=== PATIENT | male | born 1995 | race Caucasian/White ===

== ENCOUNTER 2021-11-12 19:02 | Emergency (ER) | payer OTHER ==
[~2021-11-12] VITALS: Wt 108.9 kg
[~2021-11-12 19:02] MED LIST: ACULAR 3ML 3 ML5 ML OPH; AMOXICILLIN500 MG PO; KEFLEX250 MG PO; LIDOCAINE VISC100 M2 MM; NKHM; TOBRAMYCIN 5 ML5 M2 OPH; TYLENOL W/CODEI1 TA2 PO; ZITHROMAX Z-PA250 MG PO; ZITHROMAX250 MG PO
== END 2021-11-13 01:13 | disposition home or self-care (01) ==
LOC: ED 19:02
DX: S46.811A Strain of other muscles, fascia and tendons at shoulder and upper arm level, right arm, initial encounter (principal); Z79.2 Long term (current) use of antibiotics; Z88.0 Allergy status to penicillin; W11.XXXA Fall on and from ladder, initial encounter; Y93.89 Activity, other specified; Y92.89 Other specified places as the place of occurrence of the external cause; Y99.9 Unspecified external cause status